=== PATIENT | female | born 1965 | race Caucasian/White ===

== ENCOUNTER 2017-03-29 18:40 | Emergency (ER) | payer OTHER ==
[~2017-03-29] VITALS: Ht 149.9 cm; Wt 60.4 kg
[2017-03-29] MEDS ORDERED: MEDROL DOSEPAK4 MG PO (20:10)
[2017-03-29] MEDS ORDERED: FLEXERIL10 MG PO (20:10)
[2017-03-29 20:35] VITALS: BP 139/85
== END 2017-03-29 20:48 | disposition home or self-care (01) ==
LOC: EME 18:40
DX: S43.402A Unspecified sprain of left shoulder joint, initial encounter (principal); X58.XXXA Exposure to other specified factors, initial encounter
CPT/HCPCS: 73030; 99281; 99283; J1100